=== PATIENT | male | born 1960 | race Caucasian/White ===

== ENCOUNTER 2017-08-13 09:49 | Emergency (ER) | payer BC ==
--- NOTE | 2017-08-13 10:37 | EDM.PDOC ---
ED HPI GENERAL MEDICAL PROBLEM - General Chief Complaint: Abdominal Pain Stated Complaint: ABD PAIN RADIATES TO BACK Time Seen by Provider: 08/13/17 10:32 Source of Information: Reports: Patient, RN, RN Notes Reviewed History Limitations: Reports: No Limitations - History of Present Illness INITIAL COMMENTS - FREE TEXT/NARRATIVE: Patient presents to ER with c/o diffuse abdominal pain. He states this began yesterday and has progressively gotten worse. He states the pain is an 8/10 and states it is a burning ache. He states he has had some nausea and vomiting yesterday, denies fever, chills, sob, or chest pain. He denies taking anything for the pain. He states yesterday he had turkey sandwiches and pizza for supper , but was unable to eat much more throughout the day. He denies problems with bowel movements or urination. He states he has never had any pains like this before, and denies any surgeries such as cholecystectomy or appendectomy. Onset: Gradual Onset Date: 08/12/17 Duration: Getting Worse Location: Reports: Abdomen Quality: Reports: Ache, Burning Severity: Moderate Improves with: Reports: None Worsens with: Reports: Eating Associated Symptoms: Reports: Nausea/Vomiting Right Upper Abdomen Pain Score (Numeric/FACES): 8 - Related Data Allergies Allergy/AdvReac Type Severity Reaction Status Date / Time No Known Allergies Allergy Verified 08/13/17 09:58 Home Meds: Home Meds Tamsulosin HCl [Flomax] 0.4 mg PO DAILY 08/13/17 [History] Past Medical History HEENT History: Reports: Impaired Vision Cardiovascular History: Reports: None Respiratory History: Reports: None Gastrointestinal History: Reports: None Genitourinary History: Reports: None Musculoskeletal History: Reports: Fracture Neurological History: Reports: None Psychiatric History: Reports: None Endocrine/Metabolic History: Reports: None Hematologic History: Reports: None Immunologic History: Reports: None Oncologic (Cancer) History: Reports: None Dermatologic History: Reports: None - Infectious Disease History Infectious Disease History: Reports: C-Difficile - Past Surgical History Cardiovascular Surgical History: Reports: None Respiratory Surgical History: Reports: None GI Surgical History: Reports: None Male Surgical History: Reports: None Endocrine Surgical History: Reports: None Neurological Surgical History: Reports: None Dermatological Surgical History: Reports: None Social & Family History - Tobacco Use Smoking Status *Q: Never Smoker - Caffeine Use Caffeine Use: Reports: Coffee - Alcohol Use Days Per Week of Alcohol Use: 2 Number of Drinks Per Day: 3 Total Drinks Per Week: 6 - Recreational Drug Use Recreational Drug Use: No Drug Use in Last 12 Months: No ED ROS GENERAL - Review of Systems Review Of Systems: ROS reveals no pertinent complaints other than HPI. ED EXAM, GI/ABD - Physical Exam Exam: See Below Exam Limited By: No Limitations General Appearance: Alert, WD/WN, No Apparent Distress Ears: Normal External Exam, Hearing Grossly Normal Nose: Normal Inspection Throat/Mouth: Normal Inspection, Normal Voice, No Airway Compromise Head: Atraumatic, Normocephalic Neck: Normal Inspection, Supple, Non-Tender, Full Range of Motion Respiratory/Chest: No Respiratory Distress, Lungs Clear, Normal Breath Sounds, No Accessory Muscle Use, Chest Non-Tender Cardiovascular: Normal Peripheral Pulses, Regular Rate, Rhythm, No Edema, No Gallop, No JVD, No Murmur, No Rub GI/Abdominal Exam: Normal Bowel Sounds, Soft, No Organomegaly, No Distention, No Abnormal Bruit, No Mass, Tender (Male) Exam: Deferred Rectal (Males) Exam: Deferred Back Exam: Normal Inspection, Full Range of Motion Extremities: Normal Inspection, Normal Range of Motion, Non-Tender, No Pedal Edema, Normal Capillary Refill Neurological: Alert, Oriented, Normal Cognition, Normal Gait, No Motor/Sensory Deficits Psychiatric: Normal Affect, Normal Mood Skin Exam: Warm, Dry, Intact, Normal Color, No Rash Lymphatic: No Adenopathy Course - Vital Signs Last Recorded V/S: Last Vital Signs Temp 97.6 F 08/13/17 10:00 Pulse 71 08/13/17 13:36 Resp 16 08/13/17 13:36 BP 123/86 08/13/17 13:36 Pulse Ox 95 08/13/17 13:36 - Orders/Labs/Meds Labs: Laboratory Tests 08/13/17 08/13/17 08/13/17 Range/Units 10:45 10:45 10:45 WBC 5.0 (5.0-10.0) 10^3/uL RBC 5.03 (4.6-6.2) 10^6/uL Hgb 14.9 (14.0-18.0) g/dL Hct 42.9 (40.0-54.0) % MCV 85.3 (80-100) fL MCH 29.6 (27.0-34.0) pg MCHC 34.7 (33.0-35.0) g/dL Plt Count 142 L (150-450) 10^3/uL Neut % (Auto) 76.6 H (42.2-75.2) % Lymph % (Auto) 10.1 L (20.5-50.1) % [place] % (Auto) 11.9 H (2-8) % Eos % (Auto) 1.2 (1.0-3.0) % Baso % (Auto) 0.2 (0.0-1.0) % Sodium 138 (135-145) mmol/L Potassium 3.7 (3.6-5.0) mmol/L Chloride 104 (101-111) mmol/L Carbon Dioxide 24.0 (21.0-31.0) mmol/L Anion Gap 13.7 BUN 10 (7-18) mg/dL Creatinine 0.8 (0.6-1.3) mg/dL Est Cr Clr Drug Dosing 106.46 mL/min Estimated GFR (MDRD) > 60 BUN/Creatinine Ratio 12.50 Glucose 104 (74-105) mg/dL Calcium 9.1 (8.4-10.2) mg/dl Total Bilirubin 1.0 (0.2-1.0) mg/dL AST 50 H (10-42) IU/L ALT 48 (10-60) IU/L Alkaline Phosphatase 63 (42-121) IU/L Total Protein 7.0 (6.7-8.2) g/dl Albumin 4.1 (3.2-5.5) g/dl Globulin 2.9 Albumin/Globulin Ratio 1.41 Amylase 55 (28-100) U/L Lipase 29 (22-51) U/L Urine Color (YELLOW) Urine Appearance (CLEAR) Urine pH (5.0-9.0) Ur Specific [place] (1.005-1.030) Urine Protein (NEGATIVE) Urine Glucose (UA) (NEGATIVE) Urine Ketones (NEGATIVE) Urine Occult Blood (NEGATIVE) Urine Nitrite (NEGATIVE) Urine Bilirubin (NEGATIVE) Urine Urobilinogen (0.2-1.0) mg/dL Ur Leukocyte Esterase (NEGATIVE) Urine RBC /HPF Urine WBC (0-5/HPF) /HPF Ur Epithelial Cells /HPF Urine Bacteria (0-FEW/HPF) /HPF Urine Mucus /LPF 08/13/17 Range/Units 11:06 WBC (5.0-10.0) 10^3/uL RBC (4.6-6.2) 10^6/uL Hgb (14.0-18.0) g/dL Hct (40.0-54.0) % MCV (80-100) fL MCH (27.0-34.0) pg MCHC (33.0-35.0) g/dL Plt Count (150-450) 10^3/uL Neut % (Auto) (42.2-75.2) % Lymph % (Auto) (20.5-50.1) % [place] % (Auto) (2-8) % Eos % (Auto) (1.0-3.0) % Baso % (Auto) (0.0-1.0) % Sodium (135-145) mmol/L Potassium (3.6-5.0) mmol/L Chloride (101-111) mmol/L Carbon Dioxide (21.0-31.0) mmol/L Anion Gap BUN (7-18) mg/dL Creatinine (0.6-1.3) mg/dL Est Cr Clr Drug Dosing mL/min Estimated GFR (MDRD) BUN/Creatinine Ratio Glucose (74-105) mg/dL Calcium (8.4-10.2) mg/dl Total Bilirubin (0.2-1.0) mg/dL AST (10-42) IU/L ALT (10-60) IU/L Alkaline Phosphatase (42-121) IU/L Total Protein (6.7-8.2) g/dl Albumin (3.2-5.5) g/dl Globulin Albumin/Globulin Ratio Amylase (28-100) U/L Lipase (22-51) U/L Urine Color Yellow (YELLOW) Urine Appearance Slightly cloudy (CLEAR) Urine pH 6.5 (5.0-9.0) Ur Specific [place] 1.025 (1.005-1.030) Urine Protein 30 H (NEGATIVE) Urine Glucose (UA) Negative (NEGATIVE) Urine Ketones 15 H (NEGATIVE) Urine Occult Blood Trace-intact H (NEGATIVE) Urine Nitrite Negative (NEGATIVE) Urine Bilirubin Small H (NEGATIVE) Urine Urobilinogen 1.0 (0.2-1.0) mg/dL Ur Leukocyte Esterase Negative (NEGATIVE) Urine RBC 0-5 /HPF Urine WBC 0-5 (0-5/HPF) /HPF Ur Epithelial Cells Rare /HPF Urine Bacteria Few (0-FEW/HPF) /HPF Urine Mucus Many H /LPF Meds: Medications Discontinued Medications Generic Name Dose Route Start Last Admin Trade Name Antonioq PRN Reason Stop Dose Admin Al Hydroxide/Mg Hydroxide 30 ml 08/13/17 12:10 08/13/17 12:16 Gi Cocktail PO 08/13/17 12:11 30 ml ONETIME ONE Administration Hydromorphone HCl 0.5 mg 08/13/17 12:10 08/13/17 12:16 Dilaudid IVPUSH 08/13/17 12:11 0.5 mg ONETIME ONE Administration Iopamidol 75 ml 08/13/17 11:24 08/13/17 11:48 Isovue-300 (61%) IVPUSH 08/13/17 11:25 75 ml ONETIME ONE Administration - Radiology Interpretation Free Text/Narrative:: Abdomen/Pelvis CT with contrast: "dirty" peritoneal fat upper abdomen. Right renal cyst. Otherwise negative CT scan. See rad report CT Results Date: 08/13/17 - Re-Assessments/Exams Free Text/Narrative Re-Assessment/Exam: 08/13/17 12:54 Patient states after IV pain medication and GI cocktail, the pain has gone from a 9 to a 6/10. Departure - Departure Time of Disposition: 13:48 Disposition: Admitted As Inpatient 66 Condition: Fair Clinical Impression: Abdominal pain Qualifiers: Abdominal location: generalized Qualified Code(s): R10.84 - Generalized abdominal pain - Discharge Information Instructions: Nausea and Vomiting, Adult, [id number], Abdominal Pain, Adult, [id number] Forms: ED Department Discharge Additional Instructions: Drink plenty of water Make an appointment to follow up with Dr. Sheppard, or your primary care facility. [place] diet as tolerated. Over the counter omeprazole 20mg orally once daily until seen by Dr. Sheppard. RX: Narco 5/325: 10 tablets
[2017-08-13 11:10] LABS: CHLORIDE,CL 104 mmol/L (101-111); SODIUM,NA 138 mmol/L (135-145)
[2017-08-13] MEDS ORDERED: Iopamidol 612 MG/ML 75 ML Bottle IVPUSH ONE (11:24)
[2017-08-13] MEDS ORDERED: GI Cocktail Oral Solution 30 ML PO ONE (12:10)
[2017-08-13] MEDS ORDERED: HYDROmorphone 1 MG/ML Syringe IVPUSH ONE (12:10)
--- NOTE | 2017-08-13 12:42 | CT ---
Clinical history: 56-year-old 185 pound afebrile male with "normal labs" nonspecified abdominal pain. No known trauma. Scan technique: Volume acquisition of data emergency CT scan abdomen and pelvis obtained without oral contrast but during intravenous administration 75 cc nonionic Isovue contrast while the patient was lying supine on the Siemens multislice scanner [place], [place]. All d selena archived in the PAC system for storage, reformatting and study. Interpretation: 1. *Subtle, diffuse increased density fat at the mesenteric root, epigastrium left of midline. 2. Diverticula hepatic flexure of the right colon without associated pericolonic inflammatory changes . 3. Normal gallbladder, liver, stomach, spleen, and pancreas. Normal adrenal glands and kidneys (isola flex tiny cyst upper pole right kidney). Specifically, no sign of pancreatitis or pyelonephritis. 4. Normal caliber noncalcified abdominal aorta and its major branches. No sign of aneurysm or bowel w all ischemia. 5. Prostate gland inhomogeneously dense with central calcifications. 6. No pelvic or abdominal mass lesion, signs of retroperitoneal lymphadenopathy, mechanical bowel obs truction, ascites or free intraperitoneal air. 7. Normal cardiac silhouette. Lung bases clear. Hypertrophic marginal spondylosis lower lumbar spine. CONCLUSION: "Dirty" peritoneal fat upper abdomen. Right renal cyst. Otherwise negative CT scan abdome n and pelvis.
[2017-08-13 13:36] VITALS: BP 123/86
== END 2017-08-13 14:00 | disposition home or self-care (01) ==
LOC: DL.ED 09:49
DX: R10.84 Generalized abdominal pain (principal); R10.11 Right upper quadrant pain; Z79.899 Other long term (current) drug therapy
CPT/HCPCS: 36415; 74177; 80053; 81001; 82150; 83690; 85025; 96374; 99284; A9270; J1170; Q9967

== ENCOUNTER 2023-09-06 18:18 | Emergency (ER) | payer SELFPAY ==
[2023-09-06 19:57] VITALS: BP 155/93; PULSE 54
[2023-09-06] MEDS ORDERED: ceFAZolin 2 GM Vial IVPUSH ONE (21:37)
[2023-09-06] MEDS ORDERED: Diphtheria,Pertussis(Acell),Tetanus Vaccine 0.5 ML Syringe IM ONE (21:39)
[2023-09-06] MEDS ORDERED: Lidocaine 1% 5 ML VIAL INJECT ONE (21:39)
[2023-09-06] MEDS ORDERED: Bacitracin Oint 1 GM U/D Packet TOP ONE (23:10)
[2023-09-06] MEDS ORDERED: Take Home: Cephalexin 500 MG Cap, 6 Cap Pack PO ONE (23:14)
== END 2023-09-06 23:37 | disposition home or self-care (01) ==
LOC: DL.ED 18:18
DX: S61.142A Puncture wound with foreign body of left thumb with damage to nail, initial encounter (principal); Z23 Encounter for immunization; E78.00 Pure hypercholesterolemia, unspecified; Z79.899 Other long term (current) drug therapy; W29.4XXA Contact with nail gun, initial encounter; Y92.009 Unspecified place in unspecified non-institutional (private) residence as the place of occurrence of the external cause
CPT/HCPCS: 11730; 20520; 73140-FA; 90471; 90715; 96374; 99282; 99283-25; A9270-GY; J0690; J3490